=== PATIENT | male | born 1970 | race Caucasian/White ===

== ENCOUNTER 2024-03-17 21:34 | Emergency (ER) | payer BC ==
[~2024-03-17] VITALS: Ht 172.7 cm; Wt 76.8 kg
[~2024-03-17 21:34] MED LIST: KLONOPIN0.5 MG PO; LISINOPRIL10 MG PO
--- OUTSIDE RECORDS SUMMARY | 2024-03-17 21:35 | XMS ---
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 Sarina has no Care Guidelines for this patient. [place] VISIT COUNT (12 MO.) 1 BEE [facility] TOTAL 1 NOTE: Visits indicate total known visits. ED/UCC VISIT TRACKING (12 MO.) 03/17/2024 21:35 [facility] [place] TYPE: Emergency COMPLAINT: - BLADDER PAIN INPATIENT VISIT TRACKING (12 MO.) No inpatient visits to display in this time frame [email or web address]
[2024-03-17] MEDS ORDERED: COZAAR50 MG PO (21:55)
[2024-03-17] MEDS ORDERED: METOPROLOL SUCC25 MG PO (21:55)
[2024-03-17] MEDS ORDERED: LIPITOR40 MG PO (21:55)
[2024-03-17 22:03] LABS: BILIRUBIN, URINE NEGATIVE (negative); BLOOD/HGB, URINE LARGE (Negative); KETONE, URINE TRACE (Negative); LEUK ESTERASE, URINE NEGATIVE (negative); NITRITE, URINE NEGATIVE (negative)
[2024-03-17 22:09] LABS: RED BLOOD CELLS, URINE >50 /hpf (0-5)
[2024-03-17 22:11] LABS: BACTERIA, URINE RARE /hpf (negative); CASTS, URINE NONE SEEN \\lpf; COLLECTION TYPE, URINE CLEAN CATCH; CRYSTALS, URINE NONE SEEN (0-1+); EPITHELIAL CELLS, URINE SQUAMOUS 1+ /lpf (0-1+); REFLEX CULTURE, URINE No (No)
[2024-03-17] MEDS ORDERED: PYRIDIUM100 MG PO (23:12)
[2024-03-17 23:15] VITALS: BP 131/77
[2024-03-17] MEDS ORDERED: PHENAZOPYRIDINE HCL 95 MG TAB PO ONE (23:15)
[2024-03-17 23:33] LABS: N. GONORRRHOEAE BY PCR NOT DETECTED (NOT DETECT)
== END 2024-03-17 23:18 | disposition home or self-care (01) ==
LOC: ED 21:34
PROVIDERS: Internal Medicine
DX: R31.9 Hematuria, unspecified (principal); I10 Essential (primary) hypertension; Z88.5 Allergy status to narcotic agent; Z79.899 Other long term (current) drug therapy
CPT/HCPCS: 81001; 87088; 99283

== ENCOUNTER 2025-02-23 08:58 | Day surgery (SDC) | payer BC ==
[2025-02-13 12:32] VITALS: BP 121/75
[~2025-02-23] VITALS: Ht 172.7 cm; Wt 75.0 kg
[~2025-02-23 08:58] MED LIST changes: +AMLODIPINE BES2.5 MG PO; +CEFAZOLIN SODIUM 2 GM/20 ML SYR IV SCH; +COZAAR50 MG PO; +FLOMAX0.4 MG PO; +IBLOOD GLUCOSE TEST STRIP 1 EA TEST VI PRN; +LACTATED RINGER'S 1,000 ML IV SCH; +LIDOCAINE HCL 1% 5 ML SDV INJ ONE; +LIPITOR40 MG PO; +METOPROLOL SUCC25 MG PO; +PYRIDIUM100 MG PO
[2025-02-23 09:06] VITALS: BP 129/72
[2025-02-23] MEDS ORDERED: LIDOCAINE HCL 2% 5 ML SDV ONE (09:44)
[2025-02-23] MEDS ORDERED: KETOROLAC TROMETHAMINE 30 MG/ML VIAL ONE (09:44)
[2025-02-23] MEDS ORDERED: MIDAZOLAM HCL 2 MG/2 ML VIAL ONE (09:44)
[2025-02-23] MEDS ORDERED: DEXAMETHASONE SOD PHOS 4 MG/ML VIAL ONE (09:44)
[2025-02-23] MEDS ORDERED: fentaNYL citrate 100 MCG/2 ML VIAL ONE (09:44)
[2025-02-23] MEDS ORDERED: OXYCODONE/APAP 5/325 TAB PO PRN (09:45)
[2025-02-23] MEDS ORDERED: PHENAZOPYRIDINE HCL 100 MG TAB PO PRN (09:45)
[2025-02-23] MEDS ORDERED: TRAMADOL HCL 50 MG TAB PO PRN (09:45)
[2025-02-23] MEDS ORDERED: KETOROLAC TROMETHAMINE 15 MG/ML VIAL IV PRN (09:45)
[2025-02-23] MEDS ORDERED: HYDROmorphone HCL 1 MG/ML SYR IV PRN (09:45)
[2025-02-23] MEDS ORDERED: LACTATED RINGER'S 1,000 ML IV ONE (11:51)
[2025-02-23] MEDS ORDERED: NALOXONE HCL 0.4 MG SYR IV PRN (12:15)
[2025-02-23] MEDS ORDERED: fentaNYL citrate 50 MCG/ML SDV IV PRN (12:15)
[2025-02-23] MEDS ORDERED: IBLOOD GLUCOSE TEST STRIP 1 EA TEST VI PRN (12:15)
[2025-02-23] MEDS ORDERED: MIDAZOLAM HCL 2 MG/2 ML VIAL IV PRN (12:15)
--- NOTE | 2025-02-23 12:33 | NUR ---
02/23/25 1233 Jacque David 1226: PT ARRIVES TO PACU WITH ORAL AIRWAY IN PLACE. REPORT RECEIVED FROM , SOCIAL SCIENCE MANAGER, AND IT PORTFOLIO MANAGER. JAW THRUST IS REQUIRED UNTIL 1230. HE HAS SHALLOW RESPIRATIONS, BUT IS EXCHANING AIR.
[2025-02-23 13:39] VITALS: BP 124/73
--- NOTE | 2025-02-23 13:52 | NUR ---
1335- PT ARRIVES TO DAY SURGERY TREATMENT ROOM FROM PACU. BEDSIDE REPORT RECIEVED FROM ARI HAIR WITH AT BEDSIDE. BED IS JOSE DIN THE LOWEST POSITION AND CALL LIGHT IN REACH. PT IS DROWSY BUT ANSWERS QUESTIONS APPROPRIATLY WITH VERBAL STIMULATION. PT HAS EMESIS BAG AND A SMALL AMOUNT OF GREEN VOMIT. PT CLEANED UP. ZOFRAN GIVEN, SEE EMAR. DISCHARGE CRITERIA DISCUSSED, BUT WAITING TO EAT OR DRINK AFTER EMESIS. SURGICAL SITE SHOWES A SMALL AMOUNT OF BLOOD. PT RESTING WITH COLD COMPRESS ON HIS FOREHEAD. LR INFUSING.
[2025-02-23 14:42] VITALS: BP 134/65
[2025-02-23] MEDS ORDERED: SEVOFLURANE 250 ML BTL INH ONE (14:42)
--- NOTE | 2025-02-23 14:43 | NUR ---
1440- PT IS RESTING IN STRETCHER. PT REPORT 2/10 PAIN AND 3/10 NAUSEA IF IT HAD A SCALE. PT RESTING WITH EYES CLOSED. IS AT BEDSIDE. CALL LIGHT IN REACH, BED IS LOCKED IN THE LOWEST POSITION. FAMILY IS AWARE OF DISCHARGE CRITERIA.
[2025-02-23 15:39] VITALS: BP 123/74
--- NOTE | 2025-02-23 15:42 | NUR ---
1535- PT IS RESTING IN STRETCHER. PT DENIES NAUSEA AND REPORTS PAIN THAT IS 2/10. PRESCRIPTION WAS GIVEN TO TO GET FILLED. PT WAS ABLE TO EAT SOME CRACKERS AND SIP ON SOME WATER. PT IS DROWSY. CALL LIGHT IN REACH, BED IS LOCKED IN THE LOWEST POSITON. DISCHARGE EDUCATION GONE OVER AND ALL QUESTIONS AND CONCERNS ANSWERED WITH AT BEDSIDE.
[2025-02-23 16:32] VITALS: BP 111/61
--- NOTE | 2025-02-23 16:36 | NUR ---
1635- PT RESTING IN STRETCHER. VITAL SIGNS OBATINED. PT IS DROWSY AND RESTING WITH EYES CLOSED. CALL LIGHT IN REACH AND BED IS LOCKED IN THE LOWEST POSTION. PT HAS HAD A FEW CRACKERS AND CONTINUING TO SIP ON WATER. ALL QUESTIONS AND CONERNS ANSWERED. WARM BLANKETS PROVIDED.
--- NOTE | 2025-02-23 17:30 | NUR ---
1715- PT REQUESTING TO USE THE RESTROOM. PT IS ABLE TO AMBULATE TO THE RESTROOM AND VOIDS 500ML OF DARK URINE. PT IS ABLE TO SAFELY RETURN TO ROOM AND BEGINS TO GET DRESSED WITH AT BEDSIDE. 1728- PT HAS ALL BELONGINGS. ALL QUESTIONS AND CONCERNS ANSWERED. IV REMOVED. PT IS ABLE TO AMBULATE TO WHEELCHAIR. PT DC'S FROM DAY SURGERY WITH NO ISSUES AND IT ABLE TO GET INTO FAMILY VEHICLE WITH NO ISSUES.
[2025-02-26 20:29] LABS: CALCULI MASS 21 mg (())
== END 2025-02-23 17:28 | disposition home or self-care (01) ==
LOC: DS 08:58 → OPS 08:58 → DS 11:00 → OPS 17:28
PROVIDERS: ATTEND Urology
PROC: 0TC68ZZ Extirpation of Matter from Right Ureter, Via Natural or Artificial Opening Endoscopic (ICD-10-PCS; principal; 2025-02-23 11:00)
PROC: 0T768DZ Dilation of Right Ureter with Intraluminal Device, Via Natural or Artificial Opening Endoscopic (ICD-10-PCS; 2025-02-23 11:00)
DX: N13.6 Pyonephrosis (principal); I10 Essential (primary) hypertension; K21.9 Gastro-esophageal reflux disease without esophagitis; Z79.899 Other long term (current) drug therapy; Z88.5 Allergy status to narcotic agent
CPT/HCPCS: 00918; 74420; 82365; J0690; J1100; J1790; J1885; J2003; J2250; J2405; J2704; J3010; J7121; Q9967

== ENCOUNTER 2025-02-26 22:12 | Emergency (ER) | payer BC ==
[~2025-02-26] VITALS: Ht 172.7 cm; Wt 80.2 kg
[~2025-02-26 22:12] MED LIST changes: -CEFAZOLIN SODIUM 2 GM/20 ML SYR IV SCH; -IBLOOD GLUCOSE TEST STRIP 1 EA TEST VI PRN; -LACTATED RINGER'S 1,000 ML IV SCH; -LIDOCAINE HCL 1% 5 ML SDV INJ ONE
[2025-02-26] MEDS ORDERED: TYLENOL325 MG PO (22:29)
[2025-02-26] MEDS ORDERED: CIPRO250 MG/5 M PO (22:29)
[2025-02-26] MEDS ORDERED: ADVIL200 MG PO (22:30)
[2025-02-26 22:48] LABS: BLOOD/HGB, URINE LARGE (Negative); KETONE, URINE NEGATIVE (Negative); LEUK ESTERASE, URINE SMALL (negative); NITRITE, URINE POSITIVE (negative)
[2025-02-26 22:53] LABS: BACTERIA, URINE RARE /hpf (negative); CASTS, URINE NONE SEEN \\lpf; CRYSTALS, URINE NONE SEEN (0-1+); EPITHELIAL CELLS, URINE SQUAMOUS 1+ /lpf (0-1+); REFLEX CULTURE, URINE Yes (No)
[2025-02-26 23:09] LABS: BASOPHILS 0.5 % (0.2-1.2); EOSINOPHILS 2.6 % (0.8-7.0); LYMPHOCYTES 20.2 % (21.8-53.1); MCH 30.7 PG (25.7-32.2); MCHC 34.8 g/dL (32.3-36.5); MCV 88.4 fL (79.0-92.2); MONOCYTES 8.6 % (5.3-12.2); NEUTROPHILS 68.0 % (34.0-67.9); RBC 4.49 M/uL (4.63-6.08)
[2025-02-26 23:23] LABS: ALT (SGPT) 42.0 U/L (14-59); AST (SGOT) 30.0 U/L (15-37); GLOMERULAR FILTRATION RATE,EST 74.0 mL/min (>60); PROTEIN, TOTAL 6.9 g/dL (6.4-8.2); UREA NITROGEN 14.0 mg/dL (7-18)
[2025-02-26] MEDS ORDERED: LACTULOSE10 GM/15 M PO (23:35)
[2025-02-26] MEDS ORDERED: LACTULOSE 20 GM/30 ML CUP PO ONE (23:45)
[2025-02-26] MEDS ORDERED: MAGNESIUM CITRATE 300 ML BTL PO ONE (23:45)
[2025-02-27 00:10] VITALS: BP 136/78
== END 2025-02-27 00:12 | disposition home or self-care (01) ==
LOC: ED 22:12
PROVIDERS: Family Medicine
DX: K59.00 Constipation, unspecified (principal); I10 Essential (primary) hypertension; Z87.442 Personal history of urinary calculi; Z96.0 Presence of urogenital implants; Z88.5 Allergy status to narcotic agent; Z79.899 Other long term (current) drug therapy
CPT/HCPCS: 36415; 74018; 80053; 81001; 85025; 87088

== ENCOUNTER 2025-05-27 19:00 | Emergency (ER) | payer BC ==
[~2025-05-27] VITALS: Ht 172.7 cm; Wt 56.0 kg
[~2025-05-27 19:00] MED LIST changes: +ADVIL200 MG PO; +CIPRO250 MG/5 M PO; +LACTULOSE10 GM/15 M PO; +TYLENOL325 MG PO
[2025-05-27 20:09] LABS: BLOOD/HGB, URINE LARGE (Negative); KETONE, URINE NEGATIVE (Negative); LEUK ESTERASE, URINE SMALL (negative); NITRITE, URINE NEGATIVE (negative)
[2025-05-27 20:14] LABS: EPITHELIAL CELLS, URINE SQUAMOUS 1+ /lpf (0-1+)
[2025-05-27 20:15] LABS: BACTERIA, URINE RARE /hpf (negative); CASTS, URINE NONE SEEN \\lpf; CRYSTALS, URINE NONE SEEN (0-1+); REFLEX CULTURE, URINE No (No)
[2025-05-27] MEDS ORDERED: MACROBID 100 M100 MG PO (20:24)
[2025-05-27] MEDS ORDERED: NITROFURANTOIN MONOHYD MACROCR 100 MG HOME.PACK PO ONE (20:30)
[2025-05-27 20:42] VITALS: BP 134/79
== END 2025-05-27 20:46 | disposition home or self-care (01) ==
LOC: ED 19:00
DX: N39.0 Urinary tract infection, site not specified (principal); I10 Essential (primary) hypertension; Z88.5 Allergy status to narcotic agent; Z79.899 Other long term (current) drug therapy; Z87.442 Personal history of urinary calculi
CPT/HCPCS: 81001; 87088; 99283